=== PATIENT | female | born 1955 | race Caucasian/White ===

== ENCOUNTER 2023-08-08 16:47 | Emergency (ER) | payer MEDICARE, MEDICAID, SELFPAY ==
[2023-08-08 16:48] VITALS: BP 139/60; PULSE 67; RESP 18; TEMP 36.1; O2SAT 98; BMI 26.2
[2023-08-08 17:43] VITALS: BP 154/60; PULSE 63; RESP 18; O2SAT 98
--- NOTE | 2023-08-08 17:48 | EDS_ITS ---
HPI <TRACY Cooley - Last Filed: 08/08/23 19:53> History of Present Illness Chief Complaint: Eye Problem Narrative Narrative: 68-year-old female states she lost vision in her left medial upper eye 4 days ago while chasing ago. It looks like a purple curtain. No diplopia or blurry vision. No trauma. No headache or other focal neurological symptoms. She went to the [facility] today for dilated eye exam who called and states she has a occlusion of a branch of the retinal artery and sent her here for stroke work- up. She takes 3 antihypertensive medications. No aspirin or blood thinners; has no history of TIA or CVA. PFSH <TRACY Cooley - Last Filed: 08/08/23 19:53> [facility] Medical History (Updated 08/08/23 @ 19:43 by TRACY Cooley) Heart murmur Hypertension Allergy/AdvReac Type Severity Reaction Status Date / Time No Known Allergies Allergy Verified 08/08/23 16:48 Surgical History (Updated 08/08/23 @ 17:39 by Emily Huertas) Hx of cholecystectomy Social History Smoking Status: Never smoker ROS <TRACY Cooley - Last Filed: 08/08/23 19:53> ROS ED ROS Narrative Constitutional: Negative for fever, chills, malaise. Eyes: Positive for visual change. CVS: Negative for palpitations, chest pain, syncope. Respiratory: Negative for shortness of breath, cough. GI: Negative for nausea, vomiting. Neuro: Negative for headache, motor/sensory dysfunction. EXAM <TRACY Cooley - Last Filed: 08/08/23 19:53> Physical Exam Narrative Exam Narrative: CONST: Patient sitting in no acute distress. EYES: Dilated pupils, PERRLA, EOMI, left superior medial quadrantanopia. ENT: Normal inspection, moist mucous membranes. NECK: Normal inspection. RESP: No respiratory distress, CTAB. CVS: Regular rate and rhythm, no murmur, no gallop. SKIN: Color normal, no rash, warm, dry, intact. EXTREMITIES: Normal appearance, no pedal edema. NEURO: Oriented x4. Face symmetric, cranial nerves II through XII intact, no upper or lower extremity drift, normal strength and sensation, no aphasia or dysarthria. PSYCH: Normal affect. Const Vital Signs: 08/08/23 16:48 08/08/23 17:43 Temperature 96.9 F L Temperature Source Temporal Pulse Rate 67 63 Respiratory Rate 18 18 Blood Pressure 139/60 H Blood Pressure Mean 86 Pulse Ox 98 98 Oxygen Delivery Method Room Air Room Air [facility] <TRACY Cooley - Last Filed: 08/08/23 19:53> [facility] Narrative Medical decision making narrative: Patient has had 4 days of left vision loss and was sent in by ophthalmology diagnosed with a retinal branch artery occlusion for stroke work-up. She appears well and nontoxic. Vital signs stable. Her eyes are dilated from prior exam. Pupils equal and reactive and extraocular motion intact. She has visual deficits in the left superior medial quadrant. She is otherwise neurologically intact. CBC is WNL. BMP shows BUN of 35, creatinine 1.28 with no prior for comparison. PA head and neck snows no abnormalities other than incidental thyroid nodules. Patient is refusing to be admitted for stroke work-up because she has low channels in her car and her daughter who cannot drive. She is leaving AGAINST MEDICAL ADVICE. I explained risks including further stroke, disabling neurological deficits, or . She expressed understanding and signed the form. She will call her primary care tomorrow and I advised her to take a full dose aspirin. She was discharged in stable condition. Consults: Ophthalmology who gave phone report I have personally performed a face to face assessment of the patient and have reviewed the JAGDEEP Note. I performed a substantive portion of the visit including all aspects of the following. My benavidez findings include: History is [patient presents with partial vision loss in her left eye that started 4 days ago. Patient describes decreased vision in the upper medial quadrant of the left eye. Patient was seen by ophthalmology today and they noted a occlusion of a marginal branch of the retinal artery and recommended admission and evaluation for stroke work-up. Patient has no other complaints. She denies difficulty with speech or focal weakness. She does have history of hypertension and high cholesterol.] Exam is [HEENT-PERRLA, EOMI. Cranial nerves II through XII grossly intact. TMs clear. Mucous membranes moist. No adenopathy. Decreased vision with left eye upper medial quadrant. Cardiovascular-regular rate and rhythm without murmur or ectopy Lungs-clear to auscultation, chest wall stable without crepitus or subcu emphysema Abdomen-normoactive bowel sounds, soft, nontender, no rebound or rigidity, no peritoneal signs. Extremities-intact ?4, normal range of motion, normal pulses, atraumatic] Medical Decison Making [patient presents with vision loss. Will obtain CTA of head neck and basic labs. Results will be discussed with the patient once they return however recommended admission for completion of stroke work-up. Patient tells me that she cannot be admitted as she has 2 large dogs in her car and a daughter who does not drive in the car and will not stay overnight for admission.] CTA head and neck were unremarkable. Patient also had basic labs that were unremarkable. We did recommend admission for to complete stroke work- up. She is refusing admission and understands risk for possible larger stroke could happen versus disability. Patient will follow-up with her primary care physician and will sign out AGAINST MEDICAL ADVICE. Other additions or changes: [None] <Dr. Kiley Freed, DO - Last Filed: 08/09/23 00:55> [facility] MDM Narrative Medical decision making narrative: I have personally performed a face to face assessment of the patient and have reviewed the JAGDEEP Note. I performed a substantive portion of the visit including all aspects of the following. My benavidez findings include: History is [patient presents with partial vision loss in her left eye that started 4 days ago. Patient describes decreased vision in the upper medial quadrant of the left eye. Patient was seen by ophthalmology today and they noted a occlusion of a marginal branch of the retinal artery and recommended admission and evaluation for stroke work-up. Patient has no other complaints. She denies difficulty with speech or focal weakness. She does have history of hypertension and high cholesterol.] Exam is [HEENT-PERRLA, EOMI. Cranial nerves II through XII grossly intact. TMs clear. Mucous membranes moist. No adenopathy. Decreased vision with left eye upper medial quadrant. Cardiovascular-regular rate and rhythm without murmur or ectopy Lungs-clear to auscultation, chest wall stable without crepitus or subcu emphysema Abdomen-normoactive bowel sounds, soft, nontender, no rebound or rigidity, no peritoneal signs. Extremities-intact ?4, normal range of motion, normal pulses, atraumatic] Medical Decison Making [patient presents with vision loss. Will obtain CTA of head neck and basic labs. Results will be discussed with the patient once they return however recommended admission for completion of stroke work-up. Patient tells me that she cannot be admitted as she has 2 large dogs in her car and a daughter who does not drive in the car and will not stay overnight for admission.] CTA head and neck were unremarkable. Patient also had basic labs that were unremarkable. We did recommend admission for to complete stroke work- up. She is refusing admission and understands risk for possible larger stroke could happen versus disability. Patient will follow-up with her primary care physician and will sign out AGAINST MEDICAL ADVICE. Other additions or changes: [None] Lab Data Attestation: I reviewed the patient's lab results. EKG Initial EKG: Attestation: I personally reviewed and interpreted this EKG as follows: Comments: Sinus rhythm with a rate of 59 bpm with occasional PACs Discharge Plan Triage Chief Complaint: Eye Problem ED Midlevel Provider: Laya Rodas ED Provider: Kiley Freed Dx/Rx/DC Orders Clinical Impression: Branch retinal artery occlusion of left eye Instructions: Risk Factors for Stroke Primary Care Provider: Lon Ahumada Referrals: Lon Ahumada MD [Primary Care Provider] - Activity Restrictions/Additional Instructions: The CTA of your head showed no other narrowing or abnormalities of the vessels in your head or neck. You need to see your PCP this week for further stroke work-up. Start taking aspirin 325 mg once every day. Return to ER for new or worsening symptoms. Your scan also showed thyroid nodules which you can discuss with your doctor Disposition Disposition: Home, Self Care Discharge Date/Time: 08/08/23 19:59
--- NOTE | 2023-08-08 17:53 | EKG12_ITS ---
Test Reason : Blood Pressure : / mmHG Vent. Rate : 059 BPM Atrial Rate : 059 BPM P-R Int : 178 ms QRS Dur : 084 ms QT Int : 462 ms P-R-T Axes : 056 011 018 degrees QTc Int : 457 ms Sinus bradycardia with Premature atrial complexes Otherwise normal ECG Confirmed by ADRIANA MARTÍNEZ, YESY ([id number]), editor magazine RADHA GIRON ([id number]) on 08/17/2023 10:11:35 AM Referred By: DANA Confirmed By:YESY WRIGHT MD
--- NOTE | 2023-08-08 17:56 | CT_ITS ---
EXAM: CT brain without IV contrast. HISTORY: left vision loss TECHNIQUE: No intravenous contrast. A radiation dose optimization technique was used for this scan. COMPARISON: None. LIMITATIONS: None. BRAIN: Mild involutional change. Mild low attenuation bilaterally within the deep white matter, likely secondary to chronic microvascular ischemia. VENTRICLES: No hydrocephalus. EXTRA-AXIAL SPACES: No acute hemorrhage. CALVARIUM/SKULL BASE: No acute fracture. FACE/SINUSES: No significant abnormality. SOFT TISSUES: Normal. OTHER: None. CONCLUSION: No acute intracranial abnormality. EXAM: CT angiogram brain. HISTORY: left vision loss TECHNIQUE: CTA Head and Neck W/ Contrast Injection (and W/O Contrast Images if performed). Multiplanar reconstructions and 3-D reformats were obtained. A radiation dose optimization technique was used for this scan. COMPARISON: None. LIMITATIONS: Motion artifact. DISTAL CAROTID ARTERIES: No significant stenosis. ANTERIOR CEREBRAL ARTERIES: No significant stenosis. MIDDLE CEREBRAL ARTERIES: No significant stenosis. POSTERIOR CEREBRAL ARTERIES: No significant stenosis. BASILAR ARTERY: No significant stenosis. OTHER: Ophthalmic arteries are grossly patent bilaterally.. CONCLUSION: Motion artifact. No significant stenosis identified. EXAM: CT angiogram neck. HISTORY: left vision loss TECHNIQUE: CTA Head and Neck W/ Contrast Injection (and W/O Contrast Images if performed). Multiplanar reconstructions and 3-D reformats were obtained. A radiation dose optimization technique was used for this scan. COMPARISON: None. LIMITATIONS: Motion artifact. CAROTID ARTERIES: No significant stenosis. VERTEBRAL ARTERIES: No significant stenosis. BONES/SOFT TISSUES: No acute fracture. OTHER: Several thyroid nodules. The largest measures 8 mm. CONCLUSION: No significant stenosis. Electronically Signed: Dean Ch MD at 19:35 EST , CT/CTA Head AND Neck W/ Contrast IMPRESSION: undefined
[2023-08-08] MEDS: Aspirin 325 MG Tablet PO (18:06)
[2023-08-08 18:16] LABS: Absolute Lymphocyte Count 3.39 X10^3/uL (0.83-4.51); Absolute Neutrophil Count 2.8 X10^3/uL (2.0-7.7); Basophil# 0.05 X10^3/uL; Basophil% 0.7 % (0-1); Eosinophil# 0.09 X10^3/uL; Eosinophils% 1.3 % (0-5); Hematocrit 39.6 % (37-47); Hemoglobin 13.3 g/dL (12.0-15.0); Lymphocyte # 3.39 X10^3/ul (0.83-4.51); Lymphocyte % 49.6 % (19-41); Mean Corp Hgb Conc 33.6 g/dL (32-36); Mean Corpuscular Hgb 27.9 pg (27.0-32.0); Mean Platelet Vol. 9.6 fl (6.2-12.0); Monocyte# 0.49 X10^3/uL; Monocyte% 7.2 % (0-10); NRBC Flagged by Analyzer 0 % (0-5); Neutrophil # 2.81 X10^3/uL (2.7-7.7); Neutrophil % 41.1 % (47-70); Platelet Count 250 K/mm3 (150-450); RBC Distribution Width SD 36.5 fl (35.1-43.9); Red Blood Count 4.77 M/mm3 (4.2-5.4); White Blood Count 6.8 K/mm3 (4.4-11.0)
[2023-08-08 18:27] LABS: Anion Gap 7 (5-15); BUN 35 mg/dL (7-18); BUN/Creat Ratio 27.3 RATIO (10-20); Calcium,Total 9.3 mg/dL (8.5-10.1); Chloride 102 mmol/L (98-107); Creatinine, Serum 1.28 mg/dL (0.55-1.02); EST Glomerular Filtration Rate 44 mL/min (>60); Est Glom Filt Rate - Afr Amer 53 mL/min (>60); Estimated Creatinine Clearance 36.32 ml/min; Glucose 105 mg/dL (74-106); Potassium 3.5 mmol/L (3.5-5.1); Sodium Level 138 mmol/L (136-145)
[2023-08-08 19:57] VITALS: BP 144/56; RESP 18; O2SAT 98
== END 2023-08-08 19:59 | disposition home or self-care (01) ==
PROVIDERS: Physician Assistant; Emergency Provider Emergency Medicine; PCP Internal Medicine; Visit Provider Emergency Medicine
DX: H34.232 Retinal artery branch occlusion, left eye (principal); I10 Essential (primary) hypertension; E78.00 Pure hypercholesterolemia, unspecified; Z90.49 Acquired absence of other specified parts of digestive tract
CPT/HCPCS: 70496; 70498; 80048; 85025; 93005; 99283; Q9967; A4216

== ENCOUNTER 2024-07-01 14:52 | Emergency (ER) | payer MEDICARE, MEDICAID, SELFPAY ==
[2024-07-01 14:52] VITALS: BP 96/48; BP 99/49; PULSE 72; PULSE 73; RESP 12; RESP 14; TEMP 37.2; O2SAT 97; BMI 23.1
--- NOTE | 2024-07-01 15:13 | ED.VIS.GI ---
HPI HPI - GI History of Present Illness Chief Complaint: Abd Pain Narrative Narrative: 69-year-old female past medical history of hypertension presents with nausea, vomiting, and diarrhea that she has had for the last 5 days. She states that she needs fluids. She denies any fever or chills. No abdominal pain. She states her symptoms began approximately 5 days ago where she had a large amount of vomiting. Now it will go away during the day, then it returned last evening. She has been having loose watery stool as well. She denies any blood in her emesis or in her bowel movements. She states that she was told that if she has nausea vomiting and diarrhea for more than 5 days that she needs to come to the ER. She relates history and has sick contact, who have the same thing. She denies any chest pain or shortness of breath, no lightheadedness or dizziness but noticed that her blood pressure was low today. [facility] Medical History Scoliosis of thoracolumbar spine Mixed incontinence urge and stress Pain in joint, multiple sites Irritable bowel Kidney cyst, acquired Dermatophytosis of nail Hyperlipidemia Aortic valve insufficiency, acquired Branch retinal artery occlusion of left eye Heart murmur Hypertension Home Medications ?Medication ?Instructions ?Recorded ?Last Taken ?Type amlodipine 10 mg tablet 10 mg PO DAILY 09/14/23 Unknown History aspirin 325 mg tablet 325 mg PO DAILY 09/14/23 Unknown History chlorthalidone 25 mg tablet 25 mg PO DAILY 09/14/23 Unknown History lisinopril 40 mg tablet 40 mg PO DAILY 09/14/23 Unknown History Allergy/AdvReac Type Severity Reaction Status Date / Time [id number] Reductase AdvReac Intermediate muscle Verified 07/01/24 14:53 Inhibitor cramps Surgical History Hx of hysterectomy Hx of cholecystectomy Social History Smoking Status: Never smoker alcohol intake: current alcohol intake frequency: holidays/special occasions only substance use type: does not use caffeine: Yes Type: coffee Number of servings: 2 ROS ROS ED ROS Narrative Constitutional: No fever, no chills. HEENT: No sore throat. No neck pain. No loss of vision. No rhinorrhea. Cardiovascular: No chest pain. No palpitations. No pedal edema. Respiratory: No cough, no shortness of breath. Abdominal: No abdominal pain. Positive nausea, vomiting, and diarrhea over the last 5 days. Genitourinary: No dysuria. No hematuria. Musculoskeletal: No myalgias. No arthralgias. Neurologic: No headaches. No dizziness. No lightheadedness. Skin: No rash. No change in color. Psychiatric: No depression. No anxiety. EXAM Physical Exam Narrative Exam Narrative: Afebrile. Vital signs noted. HEENT: Normocephalic. Atraumatic. PERRL, EOMI. Neck soft and supple. No point tenderness or step off. Cardiovascular: Regular rate and rhythm. No murmurs, rubs, or gallops appreciated. Respiratory: No tachypnea. Lungs clear to auscultation bilaterally. Gastrointestinal: Abdomen soft, nontender, with normoactive bowel sounds. No rebound or guarding. Neurological: Awake. Alert. Nonfocal, nonlateralizing. Skin: No rash. Normal color. No pallor. Musculoskeletal: No pedal edema. Full range of motion extremities. Const Vital Signs: 07/01/24 14:52 07/01/24 14:52 Temperature 99 F Temperature Source Temporal Pulse Rate 72 73 Respiratory Rate 12 14 Blood Pressure 99/49 L 96/48 L Blood Pressure Mean 65 64 Pulse Ox 97 97 Oxygen Delivery Method Room Air Room Air MDM MDM MDM Narrative Medical decision making narrative: Upon arrival, patient has a soft blood pressure of 99/49. She is not tachycardic. Differential diagnosis includes but not limited to intravascular volume depletion versus orthostatic hypotension versus dehydration versus other electrolyte abnormality. I have a low suspicion for anemia based on her history and physical. She will be bolused normal saline 1 L intravenously because of her hypotension. I will check a CBC, CMP, and a lipase to help rule out pancreatitis. I do not feel she merits emergent CT imaging currently as she has been abdominal examination without pain, tenderness, rebound or guarding. I reviewed her laboratory work and she has normal white count of 5.8, hemoglobin 12.1, hematocrit 35.0, platelet count normal at 246. Sodium is low at 130 with potassium 2.8. She was given 40 mill equivalents orally for replacement. Glucose is elevated at 131 with an anion gap normal at 10, BUN is elevated at 78 with a creatinine of 3.04 consistent with dehydration and acute kidney injury. LFTs are grossly normal and lipase slightly elevated at 76. Upon repeat evaluation at approximately 1615,, she is resting comfortably. I informed her of the need for observation overnight for electrolyte imbalance and fluid replacement, but she declined stating that she would like to sign out AGAINST MEDICAL ADVICE because she has animals at home that she needs to take care of currently. Additionally, I informed her of her increasing creatinine and dehydration and strongly suggested that she reconsider observation for her acute kidney injury but once again she declined. I feel she has the capacity to sign out AGAINST MEDICAL ADVICE. She was told of the risk of permanent disability, kidney failure, heart dysrhythmias, cardiopulmonary arrest and , and she acknowledges an understanding. She was told she could return to the emergency department at any time should she change her mind, but I suggested that she drink plenty of oral fluids and follow-up with her primary care provider for recheck of her electrolytes and kidney function. Disposition is signed out AGAINST MEDICAL ADVICE. Patient is in stable condition. History & Record Review Discussion w/independent historian: Patient Lab Data Attestation: I reviewed the patient's lab results. Labs: Laboratory Results - last 24 hr 07/01/24 15:35 WBC 5.8 RBC 4.38 Hgb 12.1 Hct 35.0 L MCV 79.9 L MCH 27.6 MCHC 34.6 RDW Std Deviation 34.1 L RDW Coeff of Rosaura 11.8 Plt Count 246 MPV 9.8 Immature Gran % (Auto) 0.300 Neut % (Auto) 52.8 Lymph % (Auto) 29.1 [place] % (Auto) 14.8 H Eos % (Auto) 0.9 Baso % (Auto) 2.1 H Absolute Neuts (auto) 3.1 Absolute Lymphs (auto) 1.69 Nucleated RBC % 0 Sodium 130 L Potassium 2.8 L Chloride 98 Carbon Dioxide 22.0 Anion Gap 10 BUN 78 H Creatinine 3.04 H Estim Creat Clear Calc 15.08 Est GFR (MDRD) Af Amer 20 L Est GFR (MDRD) Non-Af 16 L BUN/Creatinine Ratio 25.7 H Glucose 131 H Calcium 8.4 L Total Bilirubin 1.40 H AST 20 ALT 21 Alkaline Phosphatase 87 Total Protein 7.0 Albumin 3.3 Globulin 3.7 Albumin/Globulin Ratio 0.9 Lipase 76 H Discharge Plan Triage Chief Complaint: Abd Pain ED Provider: Hakan Gilbert Dx/Rx/DC Orders Clinical Impression: Hyponatremia, Hypokalemia, Nausea vomiting and diarrhea, Elevated lipase, Acute kidney injury Instructions: ED Dehydration (Adult), ED Diet Vomiting Diarrhea, ED Hyponatremia, ED Hypokalemia Prescriptions: No Action lisinopril 40 mg tablet 40 mg PO DAILY Patient Comments: TAKE 1 TABLET BY MOUTH ONCE DAILY amlodipine 10 mg tablet 10 mg PO DAILY Patient Comments: TAKE 1 TABLET BY MOUTH EVERY DAY chlorthalidone 25 mg tablet 25 mg PO DAILY Patient Comments: TAKE 1 TABLET BY MOUTH ONCE DAILY aspirin 325 mg tablet 325 mg PO DAILY Primary Care Provider: Lon Ahumada Referrals: Lon Ahumada MD [Primary Care Provider] - 3-5 Days Activity Restrictions/Additional Instructions: You will need to have your sodium, potassium, and creatinine (kidney function) rechecked in the next few days. Drink plenty of oral fluids. Return with abdominal pain, new or worsening symptoms. Print Language: Bol[place]ian Disposition Disposition: Against Medical Advice
[2024-07-01] MEDS: 0.9% Normal Saline (1000mL) 1,000 ML 999 ML IV (15:34)
[2024-07-01 15:45] LABS: Absolute Lymphocyte Count 1.69 X10^3/uL (0.83-4.51); Absolute Neutrophil Count 3.1 X10^3/uL (2.0-7.7); Basophil# 0.12 X10^3/uL; Basophil% 2.1 % (0-1); Eosinophil# 0.05 X10^3/uL; Eosinophils% 0.9 % (0-5); Hemoglobin 12.1 g/dL (12.0-15.0); Lymphocyte # 1.69 X10^3/ul (0.83-4.51); Lymphocyte % 29.1 % (19-41); Mean Corp Hgb Conc 34.6 g/dL (32-36); Mean Corpuscular Hgb 27.6 pg (27.0-32.0); Mean Corpuscular Volume 79.9 fL (81-99); Mean Platelet Vol. 9.8 fl (6.2-12.0); Monocyte# 0.86 X10^3/uL; Monocyte% 14.8 % (0-10); NRBC Flagged by Analyzer 0 % (0-5); Neutrophil # 3.07 X10^3/uL (2.7-7.7); Neutrophil % 52.8 % (47-70); Platelet Count 246 K/mm3 (150-450); RBC Distribution Width CV 11.8 % (11.6-14.6); RBC Distribution Width SD 34.1 fl (35.1-43.9); Red Blood Count 4.38 M/mm3 (4.2-5.4); White Blood Count 5.8 K/mm3 (4.4-11.0)
[2024-07-01 16:04] LABS: ALB/GLOB Ratio 0.9 RATIO (0.9-2.4); AST(SGOT) 20 U/L (15-37); Alanine Aminotransfer ALT/SGPT 21 U/L (13-56); Albumin, Serum 3.3 g/dL (3.2-5.0); Alkaline Phosphatase 87 U/L (45-117); Anion Gap 10 (5-15); BUN 78 mg/dL (7-18); BUN/Creat Ratio 25.7 RATIO (10-20); Calcium,Total 8.4 mg/dL (8.5-10.1); Chloride 98 mmol/L (98-107); Creatinine, Serum 3.04 mg/dL (0.55-1.02); EST Glomerular Filtration Rate 16 mL/min (>60); Est Glom Filt Rate - Afr Amer 20 mL/min (>60); Estimated Creatinine Clearance 15.08 ml/min; Globulin 3.7 g/dL (2.2-4.2); Glucose 131 mg/dL (74-106); Lipase 76 U/L (13-75); Potassium 2.8 mmol/L (3.5-5.1); Sodium Level 130 mmol/L (136-145)
[2024-07-01] MEDS: Potassium Chloride Oral Tablet 20 MEQ 40 MEQ PO (16:18)
[2024-07-01 16:52] VITALS: BP 100/50; PULSE 72; RESP 14; O2SAT 97
[2024-07-01 18:00] VITALS: BP 101/52; PULSE 70; RESP 14; O2SAT 98
== END 2024-07-01 18:09 | disposition left against medical advice (07) ==
PROVIDERS: Emergency Provider Emergency Medicine; PCP Internal Medicine; Visit Provider Emergency Medicine
DX: E87.1 Hypo-osmolality and hyponatremia (principal); N17.9 Acute kidney failure, unspecified; E87.6 Hypokalemia; R19.7 Diarrhea, unspecified; R11.2 Nausea with vomiting, unspecified; E86.0 Dehydration; I10 Essential (primary) hypertension; E78.5 Hyperlipidemia, unspecified; Z90.49 Acquired absence of other specified parts of digestive tract; Z90.710 Acquired absence of both cervix and uterus
CPT/HCPCS: 80053; 83690; 85025; 96360; 99283; J7030; A4216

== ENCOUNTER 2024-12-31 13:37 | Emergency (ER) | payer MEDICARE, MEDICAID, SELFPAY ==
[2024-12-31] VITALS (7 sets, daily range): BP systolic 139–158; BP diastolic 58–63; PULSE 57–72; RESP 14–19; TEMP 36.9; O2SAT 93–99; BMI 25.4
--- NOTE | 2024-12-31 14:46 | CT_ITS ---
PROCEDURE: BRAIN/HEAD WITHOUT CONTRAST 12/31/2024 REASON FOR EXAM: INJURY TECHNIQUE: Head CT without intravenous contrast. Coronal and Sagittal reconstruction series were provided. One or more dose reduction techniques were used (e.g., Automated exposure control, adjustment of the mA and/or kV according to patient size, use of iterative reconstruction technique. COMPARISON: None FINDINGS: ACUTE: Small right parasagittal falx subdural hematoma measuring approximately 3 mm. No significant mass effect or midline shift. No other evidence of hemorrhage is noted. No evidence of an acute infarct. * BRAIN PARENCHYMA: Signal intensities are within normal limits for age. * VENTRICLES/EXTRA-AXIAL SPACES: No hydrocephalus or extra-axial fluid collections. * EXTRACRANIAL STRUCTURES: Visualized osseous structures are normal. Soft tissues are normal. CT/Brain/Head without Contrast IMPRESSION: 3 mm right parasagittal falx subdural hematoma without mass effect. Red Alert: The critical information above was relayed directly by me by telephone to Brayan Low on 12/31/2024 at 4:33 pm with readback verification. Reading Location: [id number]
--- NOTE | 2024-12-31 14:46 | CT_ITS ---
PROCEDURE: SPINE LUMBAR WITHOUT CONTRAST 12/31/2024 REASON FOR EXAM: INJURY TECHNIQUE: CT lumbar spine was performed without IV contrast. Multiplanar reformats were generated. One or more dose reduction techniques were used (e.g., Automated exposure control, adjustment of the mA and/or kV according to patient size, use of iterative reconstruction technique COMPARISON: None. RADIATION DOSE SUMMARY: CTDlvol: 18.59 mGy DLP: 563.34 mGycm FINDINGS: No lumbar spinal fracture or acute malalignment identified. Vertebral body heights are preserved. S shaped lumbar scoliosis. Few probable small vertebral body hemangiomas. Suspect demineralization. Multilevel disc bulging with at least mild focal spinal canal stenosis at L4-L5. At least mild/moderate RIGHT foraminal stenosis at L4-L5. These are suboptimally delineated by CT. Atherosclerosis. Mild fullness of the extrarenal pelvis on the RIGHT. CT/Spine Lumbar without Contrast IMPRESSION: 1. Suspected demineralization without lumbar spinal fracture or acute malalignm ent identified. 2. Additional description as above. Reading Location: [id number]
--- NOTE | 2024-12-31 14:46 | CT_ITS ---
PROCEDURE: SPINE CERVICAL WITHOUT CONTRAS 12/31/2024 REASON FOR EXAM: INJURY TECHNIQUE: CT cervical spine was performed without IV contrast. Multiplanar reformats were generated. One or more dose reduction techniques were used (e.g., Automated exposure control, adjustment of the mA and/or kV according to patient size, use of iterative reconstruction technique RADIATION DOSE SUMMARY: CTDlvol: 44.99 mGy DLP: 829.85 mGycm COMPARISON: None FINDINGS: No cervical spinal fracture or acute malalignment identified. Vertebral body heights are preserved. Prominent likely hemangioma within C6. Demineralization. Variable spinal canal stenoses up to at least mild/moderate. Variable foraminal stenoses up to at least moderate these are suboptimally delineated by. CT. Likely degenerative ankylosis of the LEFT C3-C4 facets. Thyroid nodules and/or cysts up to 11 [address] on the RIGHT. CT/Spine Cervical without Contras IMPRESSION: 1. Demineralization without cervical spinal fracture or acute malalignment iden tified. 2. Additional description as above. Reading Location: [id number]
--- NOTE | 2024-12-31 14:50 | ED.VIS.FALL ---
HPI HPI - Fall History of Present Illness Chief Complaint: Fall Informant: patient Narrative Narrative: 69-year-old female presenting to the emergency room with head and back injury. Patient states that this morning she slipped and fell on an icy area [place]. She states she fell backwards and struck her head. She had some neck pain with movement. No reported loss of consciousness. She does not take anticoagulants. She also notes pain in the low back. She states that she took a nap and woke up and the neck felt better. PFSH [facility] Medical History Scoliosis of thoracolumbar spine Mixed incontinence urge and stress Pain in joint, multiple sites Irritable bowel Kidney cyst, acquired Dermatophytosis of nail Hyperlipidemia Aortic valve insufficiency, acquired Branch retinal artery occlusion of left eye Heart murmur Hypertension Home Medications ?Medication ?Instructions ?Recorded ?Last Taken ?Type amlodipine 10 mg tablet 10 mg PO DAILY 09/14/23 Unknown History aspirin 325 mg tablet 325 mg PO DAILY 09/14/23 Unknown History chlorthalidone 25 mg tablet 25 mg PO DAILY 09/14/23 Unknown History lisinopril 40 mg tablet 40 mg PO DAILY 09/14/23 Unknown History Allergy/AdvReac Type Severity Reaction Status Date / Time [id number] Reductase AdvReac Intermediate muscle Verified 12/31/24 13:41 Inhibitor cramps Family History no significant family his Surgical History Hx of hysterectomy Hx of cholecystectomy Social History Smoking Status: Never smoker alcohol intake: current alcohol intake frequency: holidays/special occasions only substance use type: does not use caffeine: Yes Type: coffee Number of servings: 2 ROS ROS ED Constitutional Constitutional ED: Denies chills, fever(s) or weight loss Eyes Eyes: Denies change in vision or diplopia ENT ENT ED: Denies ear pain, rhinorrhea or sore throat Cardiovascular Cardiovascular: Denies chest pain, orthopnea, palpitations or racing heartbeat Respiratory/Chest Respiratory/Chest: Denies cough, dyspnea or orthopnea Gastrointestinal Gastrointestinal: Denies abdominal pain, diarrhea, nausea or vomiting Genitourinary Genitourinary ED: Denies dysuria, hematuria or urinary frequency Musculoskeletal Musculoskeletal: Reports back pain and neck pain; Denies arthralgias or myalgias Integumentary Denies abscess or rash Neurologic Neurologic: Reports headache(s); Denies paresthesias or weakness Psychiatric Psychiatric: Denies anxiety, depression, suicidal ideation or suicidal thoughts Endocrine Endocrinology: Denies polydipsia, polyphagia or polyuria Allergic/Immunologic Allergic/Immunologic ED: Denies mouth swelling, tongue swelling or urticaria EXAM Physical Exam Const Vital Signs: 12/31/24 13:38 12/31/24 14:46 12/31/24 16:18 Temperature 98.4 F Temperature Source Oral Pulse Rate 71 72 Respiratory Rate 14 18 Respiratory Effort Normal Non-Labored Respiratory Depth Normal Respiratory Pattern Normal Blood Pressure 139/63 H 144/58 H Blood Pressure Mean 88 86 Pulse Ox 94 98 Oxygen Delivery Method Room Air Room Air Room Air 12/31/24 17:30 12/31/24 17:46 Temperature Temperature Source Pulse Rate 61 Respiratory Rate 19 H Respiratory Effort Respiratory Depth Respiratory Pattern Blood Pressure 152/60 H Blood Pressure Mean 90 Pulse Ox 97 Oxygen Delivery Method Room Air Room Air Positive well nourished and well developed General Appearance ED: well developed and NAD HEENT Reports normocephalic and moist mucous membranes HEENT Narrative: Small occipital scalp hematoma no palpable bony depression. No laceration is seen. Eyes PERRL and EOMs intact bilaterally Neck full ROM, no lymphadenopathy, supple and no JVD Resp normal respiratory effort and clear to auscultation bilaterally Cardio regular rate and regular rhythm Cardio Narrative: 2 out of 6 systolic murmur (known) GI normal to inspection, nondistended, normoactive bowel sounds and non-tender Palpation: soft Back/Spine no CVA tenderness and normal ROM Back/Spine Narrative: Tender palpation of the lower lumbar spine in the midline. Thoracic Spine / Upper Back: pain with ROM Extremity normal to inspection General Extremety ED: Negative for edema General Extremity: Negative for edema Neuro oriented x3 and CN's II-XII intact bilaterally Laurence Coma Scale: document GCS findings Spontaneous Obeys Commands Oriented 15 Sensorium / Orientation: alert Motor Exam: strength 5/5 throughout Psych mental status grossly normal Mood & Affect: Negative for depressed or tearful Skin no rashes or lesions noted and no wounds MDM MDM MDM Narrative Medical decision making narrative: Differential diagnosis includes but not limited to intracranial hemorrhage skull fracture cervical spine fracture myofascial strain lumbar spine fracture sacral fracture lumbar myofascial strain CT of the brain cervical spine and lumbar spine were obtained. This demonstrated degenerative changes of the spine. There is noted to be a 3 mm acute subdural hematoma along the right parasagittal falx. There is no mass effect. Patient was updated with the results. She does not wish to stay in the hospital or be transferred. She states she has things to do at home. She does not wish me to speak with her family regarding this. Patient does appear to have capacity. Neurologically she is still intact GCS of 15 ANO x 3. After more conversation the patient is agreeable to transfer. I spoke with [facility] and she has been accepted. Blood work will be obtained including coags. History & Record Review Discussion w/independent historian: Patient Lab Data Attestation: I reviewed the patient's lab results. Labs: Laboratory Results - last 24 hr 12/31/24 17:00 WBC 8.6 RBC 5.01 Hgb 13.9 Hct 40.5 MCV 80.8 L MCH 27.7 MCHC 34.3 RDW Std Deviation 35.7 RDW Coeff of Rosaura 12.3 Plt Count 237 MPV 9.7 Immature Gran % (Auto) 0.400 Neut % (Auto) 62.4 Lymph % (Auto) 27.9 Mcintosh % (Auto) 7.8 Eos % (Auto) 0.8 Baso % (Auto) 0.7 Absolute Neuts (auto) 5.4 Absolute Lymphs (auto) 2.39 Nucleated RBC % 0 PT 12.8 INR 0.9 APTT 25.7 Sodium 137 Potassium 3.6 Chloride 98 Carbon Dioxide 25.0 Anion Gap 14 BUN 24 H Creatinine 0.95 Estim Creat Clear Calc 52.63 Est GFR (MDRD) Non-Af 65 BUN/Creatinine Ratio 25.1 H Glucose 109 H Calcium 9.8 Radiography Diagnostic Testing: Clinical Impression(s) from Imaging Studies Brain CT 12/31/24 14:46 IMPRESSION: 3 mm right parasagittal falx subdural hematoma without mass effect. Red Alert: The critical information above was relayed directly by me by telephone to Brayan Arrieta on 12/31/2024 at 4:33 pm with readback verification. Reading Location: [facility] Cervical Spine CT 12/31/24 14:46 IMPRESSION: 1. Demineralization without cervical spinal fracture or acute malalignment identified. 2. Additional description as above. Reading Location: [facility] Lumbar Spine CT 12/31/24 14:46 IMPRESSION: 1. Suspected demineralization without lumbar spinal fracture or acute malalignment identified. 2. Additional description as above. Reading Location: [facility] Management Discussion w/another healthcare provider: Junior Database Administrator (Dr Niño) and Radiologist Critical Care Time Critical Care Time: Yes Critical care time (excluding procedures): 30-74 minutes (34 min), Including time spent:, Discussing w/Patient &/or Family/Chemical Operations Specialist, Discussing w/Consultants, Arranging Admission or Transfer and Performing Direct Patient Care at Bedside Discharge Plan Triage Chief Complaint: Fall ED Provider: Brayan Arrieta Dx/Rx/DC Orders Clinical Impression: Fall, Acute subdural hematoma, Acute cervical myofascial strain, Acute lumbar myofascial strain Prescriptions: No Action lisinopril 40 mg tablet 40 mg PO DAILY Patient Comments: TAKE 1 TABLET BY MOUTH ONCE DAILY amlodipine 10 mg tablet 10 mg PO DAILY Patient Comments: TAKE 1 TABLET BY MOUTH EVERY DAY chlorthalidone 25 mg tablet 25 mg PO DAILY Patient Comments: TAKE 1 TABLET BY MOUTH ONCE DAILY aspirin 325 mg tablet 325 mg PO DAILY Primary Care Provider: Lon Ahumada Referrals: Lon Ahumada MD [Primary Care Provider] - Print Language: Jordanian Disposition Disposition: Acute Care Hospital Discharge Location: [facility]
[2024-12-31 17:13] LABS: Absolute Lymphocyte Count 2.39 X10^3/uL (0.83-4.51); Absolute Neutrophil Count 5.4 X10^3/uL (2.0-7.7); Basophil# 0.06 X10^3/uL; Basophil% 0.7 % (0-1); Eosinophil# 0.07 X10^3/uL; Eosinophils% 0.8 % (0-5); Hematocrit 40.5 % (37-47); Hemoglobin 13.9 g/dL (12.0-15.0); Lymphocyte # 2.39 X10^3/ul (0.83-4.51); Lymphocyte % 27.9 % (19-41); Mean Corp Hgb Conc 34.3 g/dL (32-36); Mean Corpuscular Hgb 27.7 pg (27.0-32.0); Mean Corpuscular Volume 80.8 fL (81-99); Mean Platelet Vol. 9.7 fl (6.2-12.0); Monocyte# 0.67 X10^3/uL; Monocyte% 7.8 % (0-10); NRBC Flagged by Analyzer 0 % (0-5); Neutrophil # 5.35 X10^3/uL (2.7-7.7); Neutrophil % 62.4 % (47-70); Platelet Count 237 K/mm3 (150-450); RBC Distribution Width CV 12.3 % (11.6-14.6); RBC Distribution Width SD 35.7 fl (35.1-43.9); Red Blood Count 5.01 M/mm3 (4.2-5.4); White Blood Count 8.6 K/mm3 (4.4-11.0)
[2024-12-31 17:33] LABS: Anion Gap 14 (5-15); BUN 24 mg/dL (4-19); BUN/Creat Ratio 25.1 RATIO (10-20); Calcium,Total 9.8 mg/dL (7.6-11.0); Chloride 98 mmol/L (98-108); Creatinine, Serum 0.95 mg/dL (0.70-1.20); EST Glomerular Filtration Rate 65 (>60); Estimated Creatinine Clearance 52.63 ml/min (50-250); Glucose 109 mg/dL (70-99); Potassium 3.6 mmol/L (3.3-5.1); Sodium Level 137 mmol/L (133-145)
[2024-12-31 17:46] LABS: International Normalized Ratio 0.9; Prothrombin Time (Protime)PT. 12.8 SECONDS (11.7-14.9)
[2024-12-31 17:47] LABS: Partial Thromboplast Time 25.7 Seconds (24.1-36.2)
== END 2024-12-31 18:40 | disposition short-term general hospital (02) ==
PROVIDERS: Emergency Provider Emergency Medicine; PCP Internal Medicine; Visit Provider Emergency Medicine
DX: I62.01 Nontraumatic acute subdural hemorrhage (principal); I10 Essential (primary) hypertension; S16.1XXA Strain of muscle, fascia and tendon at neck level, initial encounter; E78.5 Hyperlipidemia, unspecified; Z90.710 Acquired absence of both cervix and uterus; Z90.49 Acquired absence of other specified parts of digestive tract; W00.0XXA Fall on same level due to ice and snow, initial encounter; Y92.89 Other specified places as the place of occurrence of the external cause
CPT/HCPCS: 70450; 72125; 72131; 80048; 85025; 85610; 85730; 96374; 96376; 99284; A4216

== ENCOUNTER → 2025-01-29 | Outpatient (CLI) | payer MEDICARE, MEDICAID, SELFPAY ==
--- NOTE | 2025-01-29 13:30 | CT_ITS ---
PROCEDURE: BRAIN/HEAD WITHOUT CONTRAST 01/29/2025 REASON FOR EXAM: SUBDURAL HEMORRHAGE TECHNIQUE: Head CT without intravenous contrast. Coronal and Sagittal reconstruction series were provided. One or more dose reduction techniques were used (e.g., Automated exposure control, adjustment of the mA and/or kV according to patient size, use of iterative reconstruction technique. RADIATION DOSE SUMMARY: CTDlvol: ? MGy DLP: ? MGycm COMPARISON: 12/31/2024 FINDINGS: On the current study, no parenchymal or extra-axial hemorrhage. Normal ventricles. Normal reyes-white differentiation and posterior fossa. Bony calvarium is intact and the sinuses are clear. No visible residual parasagittal subdural hemorrhage. There is falcine calcification dorsally CT/Brain/Head without Contrast IMPRESSION: No residual hemorrhage Reading [facility]
== END | disposition home or self-care (01) ==
LOC: CT 13:27
PROVIDERS: PCP Internal Medicine; Referring Provider Internal Medicine; Visit Provider Internal Medicine
DX: S06.5X0D Traumatic subdural hemorrhage without loss of consciousness, subsequent encounter (principal)
CPT/HCPCS: 70450

== ENCOUNTER → 2025-06-20 | Outpatient (CLI) | payer MEDICARE, MEDICAID, SELFPAY ==
--- NOTE | 2025-06-20 13:59 | ECHOD_ITS ---
Reason For Study Reason For Study: MURMUR Procedure This was a 2D Doppler, Color Flow transthoracic echocardiogram. The study was technically difficult. Exam performed in department. Left Ventricle Normal size and thickness. The left ventricular ejection fraction is 65 %. Normal diastology for age. Right Ventricle Normal right ventricle. Atria The left and right atria are normal. Mitral Valve Severe posterior mitral valve annular calcification. Trivial mitral valve insufficiency. Tricuspid Valve Mild (1+) tricuspid valve insufficiency. Normal pulmonary artery pressure. Aortic Valve Trileaflet aortic valve. Mildly calcified leaflets. Aortic valve sclerosis without stenosis. Mean peak gradient across aortic valve 9 mmHg. Consider high output state. Pulmonic Valve The pulmonic valve is not well visualized. Great Vessels Normal sized aortic root. Pericardium/Pleural No pericardial effusion. MMode/2D Measurements & Calculations LVIDd: 4.8 cm IVSd: 0.68 cm LVOT diam: 1.9 cm LVIDs: 3.1 cm LVPWd: 0.69 cm LVOT area: 2.8 cm2 RVDd: 3.4 cm FS: 35.0 % Ao root diam: 3.2 cm LAV(MOD-bp): 57.2 ml LVAd ap4: 26.0 cm2 LAV(MOD-bp) Indexed: 32.9 ml/m2 LVLd ap4: 7.4 cm LAV(MOD-sp2): 44.7 ml EDV(MOD-sp4): 74.5 ml LAV(MOD-sp4): 59.6 ml EDV(sp4-el): 77.3 ml LVAs ap4: 12.7 cm2 LVLs ap4: 6.2 cm ESV(MOD-sp4): 22.8 ml ESV(sp4-el): 22.2 ml EF(MOD-sp4): 69.4 % EF(sp4-el): 71.3 % SV(MOD-sp4): 51.7 ml SV(sp4-el): 55.2 ml Aortic Valve Planimetry: 2.2 cm2 SI(MOD-sp4): 29.7 ml/m2 LA A4 area: 18.8 cm2 LA dimension(2D): 3.9 cm RA A4 area: 13.4 cm2 TAPSE: 1.9 cm Time Measurements MV dec time: 0.26 sec Doppler Measurements & Calculations MV E max neno: 91.5 cm/sec Lat Peak E' Neno: 6.3 cm/sec Med Peak E' Neno: 6.2 cm/sec MV A max neno: 99.7 cm/sec E/E' lat: 14.6 E/E' med: 14.8 MV E/A: 0.92 MV V2 max: 126.8 cm/sec MV P1/2t max neno: 117.8 cm/sec Ao V2 max: 218.9 cm/sec MV max P.4 mmHg MV P1/2t: 94.6 msec Ao max P.2 mmHg MV V2 mean: 62.7 cm/sec Ao V2 mean: 141.0 cm/sec MV mean P.0 mmHg MV dec slope: 364.5 cm/sec2 Ao mean P.3 mmHg MV V2 VTI: 40.6 cm MVA(P1/2t): 2.3 cm2 Ao V2 VTI: 54.4 cm AV (velocity ratio): 0.81 MVA(VTI): 3.1 cm2 MARYAM(I,D): 2.3 cm2 MARYAM(V,D): 2.4 cm2 AI max neno: 388.3 cm/sec LV V1 max: 182.5 cm/sec SV(LVOT): 125.1 ml AI max P.3 mmHg LV V1 max P.3 mmHg AI dec slope: 172.9 cm/sec2 LV V1 mean P.4 mmHg AI P1/2t: 658.0 msec LV V1 mean: 116.1 cm/sec LV V1 VTI: 43.9 cm PA V2 max: 119.6 cm/sec TR max neno: 204.0 cm/sec TR max P.2 mmHg ECHO/Echo Complete Interpretation Summary The left ventricular ejection fraction is 65 %. Severe posterior mitral valve annular calcification. Mild (1+) tricuspid valve insufficiency. Trileaflet aortic valve. Mildly calcified leaflets. Aortic valve sclerosis with out stenosis. Mean peak gradient across aortic valve 9 mmHg. Consider high output state. Ordering Physician: Paris Mckenna Referring Physician: Lon Ahumada Performed By: June Maravilla, ANSON, RVT
== END | disposition home or self-care (01) ==
LOC: CVS 13:59
PROVIDERS: PCP Internal Medicine; Referring Provider Physician Assistant Medical; Visit Provider Physician Assistant Medical
DX: I35.1 Nonrheumatic aortic (valve) insufficiency (principal)
CPT/HCPCS: 93306